=== PATIENT | female | born 1950 | race Caucasian/White ===

== ENCOUNTER → 2018-07-10 13:32 | Outpatient (CLI) | payer MEDICARE, BC, SELFPAY ==
--- NOTE | 2018-07-10 13:39 | XR_ITS ---
XR wrist LT w scaphoid HISTORY follow-up fracture ITS.REASON: wrist fracture ORDERING PHYSICIAN: Lilia Machado MD PATIENT AGE: 67 years Comparison: 07/09/2018 FINDINGS: There is a splint in place anteriorly. Previously there was a small calcific focus along the dorsal aspect of wrist not apparent on the day study possibly due to slight difference in technique. No other significant anomalies are evident. There is good alignment. IMPRESSION: No acute finding
== END ==
PROVIDERS: Visit Provider Orthopaedic Surgery
DX: S62.102A Fracture of unspecified carpal bone, left wrist, initial encounter for closed fracture (principal)
CPT/HCPCS: 73110

== ENCOUNTER → 2018-08-02 14:03 | Outpatient (CLI) | payer MEDICARE, BC, SELFPAY ==
--- NOTE | 2018-08-02 14:13 | XR_ITS ---
XR wrist LT w scaphoid CLINICAL INDICATION: ITS.REASON: left wrist scaphoid fracture ORDERING PHYSICIAN: Lilia Machado MD PATIENT AGE: 67 years Comparison: 07/10/2018. FINDINGS: Scaphoid area. Normal. Bone density, joint spaces and alignment are normal. There is however a small 2 mm ossific or calcific density within the posterior soft tissues at the level of the proximal metacarpal area. When compared with 07/09/2018 there is a stable punctate 2 mm ossific or calcific density posterior to the distal carpal area and generally the triquetrum is along the proximal carpal area. IMPRESSION: Overall no change especially when compared with 07/09/2018. The punctate posterior ossific or calcific density is unchanged. This could be a small avulsed cortical fracture fragment although indeterminate as to the origin on this study. Age of this finding is indeterminate. This is probably not related to triquetrum because of the location which is more distal to the level of the triquetrum.
== END ==
PROVIDERS: Visit Provider Orthopaedic Surgery
DX: S62.109A Fracture of unspecified carpal bone, unspecified wrist, initial encounter for closed fracture (principal)
CPT/HCPCS: 73110

== ENCOUNTER → 2018-08-21 13:55 | Outpatient (CLI) | payer MEDICARE, BC, SELFPAY ==
--- NOTE | 2018-08-21 14:03 | XR_ITS ---
XR wrist LT w scaphoid HISTORY pain following injury ITS.REASON: scaphoid series ORDERING PHYSICIAN: Lilia Machado MD PATIENT AGE: 67 years Comparison: 08/02/2018 FINDINGS: Single scaphoid view shows no obvious fracture or other significant anomalies. IMPRESSION: Negative scaphoid view
== END ==
PROVIDERS: Visit Provider Orthopaedic Surgery
DX: M25.532 Pain in left wrist (principal)
CPT/HCPCS: 73110

== ENCOUNTER 2018-08-21 15:11 | Outpatient (RCR) | payer MEDICARE, BC, SELFPAY | END 2018-08-21 15:20 | disposition home or self-care (01) | LOC: OT 15:11 | PROVIDERS: Visit Provider Orthopaedic Surgery | DX: S62.109A Fracture of unspecified carpal bone, unspecified wrist, initial encounter for closed fracture (principal) | CPT/HCPCS: 97763 ==

== ENCOUNTER → 2018-09-24 15:07 | Outpatient (CLI) | payer MEDICARE, BC, SELFPAY ==
--- NOTE | 2018-09-24 15:12 | MR_ITS ---
PROCEDURE: MR WRIST LT WO CON CLINICAL INDICATION: scaphoid injury Left wrist pain COMPARISON: from 08/21/2018 TECHNIQUE: Multiplanar multi echo sequences are performed without contrast FINDINGS: The scaphoid has an unremarkable appearance. No evidence of fracture or bone bruise or signal alteration. There is mild prominence of the scapholunate joint space. The the intrinsic ligaments of the wrist are incompletely assessed without intra-articular contrast. There is a small amount of fluid along the palm are aspect of the distal ulna. The integrity of the triangular fibrocartilage is not adequately assessed on this study due to motion and lack of intra-articular contrast. A small joint effusion is present along the volar aspect of the distal ulna and medial to the capitate. Small amount fluid is also present at the distal radius at the radial scaphoid region. IMPRESSION: Incomplete evaluation of ligamentous structures without intra-articular contrast. There is mild prominence of the scapholunate space. This may indicate ligamentous injury. Effusions are also present both at the distal radius and the distal ulna. No obvious fracture is apparent. Dictated by: Bereket Jaimes MD 09/28/2018 10:32 Signed by: <Electronically signed by Bereket Jaimes MD in [place]> 10/02/2018 07:02
== END ==
PROVIDERS: Visit Provider Orthopaedic Surgery
DX: S62.102A Fracture of unspecified carpal bone, left wrist, initial encounter for closed fracture (principal); M25.532 Pain in left wrist
CPT/HCPCS: 73221